=== PATIENT | male | born 1980 | race Two or more races ===

== ENCOUNTER 2019-05-26 02:38 | Emergency (ER) | payer OTHER ==
[~2019-05-26] VITALS: Ht 175.3 cm; Wt 108.9 kg
[2019-05-26 06:22] VITALS: BP 164/95
[2019-05-26] MEDS ORDERED: KETOROLAC TROMETH 60MG/2ML VIAL IM ONE (06:30)
== END 2019-05-26 07:08 | disposition home or self-care (01) ==
LOC: ER 02:55
DX: S90.02XA Contusion of left ankle, initial encounter (principal); W11.XXXA Fall on and from ladder, initial encounter; Y93.89 Activity, other specified; Y99.8 Other external cause status; Y92.89 Other specified places as the place of occurrence of the external cause
CPT/HCPCS: 29515; 73610; 96372; 99283; J1885; J7030